=== PATIENT | female | born 1995 | race Caucasian/White ===

== ENCOUNTER 2018-06-28 10:58 | Emergency (ER) | payer BC, OTHER ==
[~2018-06-28] VITALS: Ht 165.1 cm; Wt 133.4 kg
[~2018-06-28 10:58] MED LIST: VENTOLIN HFA 1818 GM INH
[2018-06-28] MEDS ORDERED: BUTALB-APAP-CA1 EACH PO (13:00)
[2018-06-28 13:14] VITALS: BP 120/70
== END 2018-06-28 13:10 | disposition home or self-care (01) ==
LOC: ER 10:58
DX: R51 Headache (principal); J45.909 Unspecified asthma, uncomplicated

== ENCOUNTER 2018-11-09 16:28 | Emergency (ER) | payer BC, OTHER ==
[~2018-11-09] VITALS: Ht 160 cm; Wt 132.9 kg
[~2018-11-09 16:28] MED LIST changes: +BUTALB-APAP-CA1 EACH PO
[2018-11-09] MEDS ORDERED: PRENATAL PO (16:50)
[2018-11-09] MEDS ORDERED: UNICOMPLEX M TA1 TA1 PO (16:50)
[2018-11-09] MEDS ORDERED: IRON325 PO (16:50)
[2018-11-09] MEDS ORDERED: NORCO 5-325 TA1 EACH PO (17:35)
[2018-11-09 17:49] VITALS: BP 124/86
== END 2018-11-09 17:46 | disposition home or self-care (01) ==
LOC: ER 16:28
DX: S86.091A Other specified injury of right Achilles tendon, initial encounter (principal); J45.909 Unspecified asthma, uncomplicated; X50.1XXA Overexertion from prolonged static or awkward postures, initial encounter; Y92.89 Other specified places as the place of occurrence of the external cause; Y99.0 Civilian activity done for income or pay; Y99.8 Other external cause status

== ENCOUNTER 2018-11-18 07:49 | Emergency (ER) | payer BC, OTHER ==
[~2018-11-18] VITALS: Ht 162.6 cm; Wt 133.4 kg
[~2018-11-18 07:49] MED LIST changes: +IRON325 PO; +NORCO 5-325 TA1 EACH PO; +PRENATAL PO; +UNICOMPLEX M TA1 TA1 PO
[2018-11-18] MEDS ORDERED: NORCO 5-325 TA1 EACH PO (09:24)
[2018-11-18 10:01] VITALS: BP 113/59
== END 2018-11-18 10:02 | disposition home or self-care (01) ==
LOC: ER 07:49
DX: S86.091A Other specified injury of right Achilles tendon, initial encounter (principal); J45.909 Unspecified asthma, uncomplicated; X50.1XXA Overexertion from prolonged static or awkward postures, initial encounter; Y92.89 Other specified places as the place of occurrence of the external cause; Y93.89 Activity, other specified; Y99.8 Other external cause status